=== PATIENT | female | born 1990 | race Caucasian/White ===

== ENCOUNTER → 2024-01-10 08:16 | Outpatient (REF) | payer OTHER, SELFPAY | LOC: PNTC 08:16 | PROVIDERS: ATTENDING PHYSICIAN Obstetrics & Gynecology | DX: O41.00X0 Oligohydramnios, unspecified trimester, not applicable or unspecified (principal); O36.5990 Maternal care for other known or suspected poor fetal growth, unspecified trimester, not applicable or unspecified | CPT/HCPCS: 59025; 76815; 76820 ==

== ENCOUNTER → 2024-01-14 10:23 | Outpatient (REF) | payer OTHER, SELFPAY | LOC: PNTC 10:23 | PROVIDERS: ATTENDING PHYSICIAN Obstetrics & Gynecology | DX: O36.5990 Maternal care for other known or suspected poor fetal growth, unspecified trimester, not applicable or unspecified (principal); O41.00X0 Oligohydramnios, unspecified trimester, not applicable or unspecified | CPT/HCPCS: 59025; 76815; 76820 ==

== ENCOUNTER → 2024-01-17 09:48 | Outpatient (REF) | payer OTHER, SELFPAY | LOC: PNTC 09:48 | PROVIDERS: ATTENDING PHYSICIAN Obstetrics & Gynecology | DX: O36.5990 Maternal care for other known or suspected poor fetal growth, unspecified trimester, not applicable or unspecified (principal); E86.9 Volume depletion, unspecified | CPT/HCPCS: 59025; 76815; 76820 ==

== ENCOUNTER → 2024-01-21 10:58 | Outpatient (REF) | payer OTHER, SELFPAY | LOC: PNTC 10:58 | PROVIDERS: ATTENDING PHYSICIAN Obstetrics & Gynecology | DX: O41.00X0 Oligohydramnios, unspecified trimester, not applicable or unspecified (principal); O36.5990 Maternal care for other known or suspected poor fetal growth, unspecified trimester, not applicable or unspecified | CPT/HCPCS: 59025; 76815; 76820 ==

== ENCOUNTER → 2024-01-24 09:20 | Outpatient (REF) | payer OTHER, SELFPAY | LOC: PNTC 09:20 | PROVIDERS: ATTENDING PHYSICIAN Obstetrics & Gynecology | DX: O41.00X0 Oligohydramnios, unspecified trimester, not applicable or unspecified (principal) | CPT/HCPCS: 59025; 76816 ==

== ENCOUNTER → 2024-01-28 09:24 | Outpatient (REF) | payer OTHER, SELFPAY | LOC: PNTC 09:24 | PROVIDERS: ATTENDING PHYSICIAN Obstetrics & Gynecology | DX: O36.5990 Maternal care for other known or suspected poor fetal growth, unspecified trimester, not applicable or unspecified (principal); O41.00X0 Oligohydramnios, unspecified trimester, not applicable or unspecified | CPT/HCPCS: 59025; 76815; 76820 ==

== ENCOUNTER → 2024-01-31 08:52 | Outpatient (REF) | payer OTHER, SELFPAY | LOC: PNTC 08:52 | PROVIDERS: ATTENDING PHYSICIAN Obstetrics & Gynecology | DX: O41.00X0 Oligohydramnios, unspecified trimester, not applicable or unspecified (principal) | CPT/HCPCS: 59025; 76815; 76820 ==

== ENCOUNTER → 2024-02-04 08:54 | Outpatient (REF) | payer OTHER, SELFPAY | LOC: PNTC 08:54 | PROVIDERS: ATTENDING PHYSICIAN Obstetrics & Gynecology | DX: O36.5990 Maternal care for other known or suspected poor fetal growth, unspecified trimester, not applicable or unspecified (principal); O41.00X0 Oligohydramnios, unspecified trimester, not applicable or unspecified | CPT/HCPCS: 76815 ==

== ENCOUNTER → 2024-02-07 09:50 | Outpatient (REF) | payer OTHER, SELFPAY | LOC: PNTC 09:50 | PROVIDERS: ATTENDING PHYSICIAN Obstetrics & Gynecology | DX: O41.00X0 Oligohydramnios, unspecified trimester, not applicable or unspecified (principal); O36.5990 Maternal care for other known or suspected poor fetal growth, unspecified trimester, not applicable or unspecified | CPT/HCPCS: 59025; 76815; 76820 ==

== ENCOUNTER → 2024-02-11 08:55 | Outpatient (REF) | payer OTHER, SELFPAY | LOC: PNTC 08:55 | PROVIDERS: ATTENDING PHYSICIAN Obstetrics & Gynecology | DX: O36.5990 Maternal care for other known or suspected poor fetal growth, unspecified trimester, not applicable or unspecified (principal); O41.00X0 Oligohydramnios, unspecified trimester, not applicable or unspecified | CPT/HCPCS: 59025; 76815; 76820 ==

== ENCOUNTER → 2024-02-14 10:52 | Outpatient (REF) | payer OTHER, SELFPAY | LOC: PNTC 10:52 | PROVIDERS: ATTENDING PHYSICIAN Obstetrics & Gynecology | DX: O41.00X0 Oligohydramnios, unspecified trimester, not applicable or unspecified (principal) | CPT/HCPCS: 59025; 76816; 76820 ==

== ENCOUNTER → 2024-02-18 08:55 | Outpatient (REF) | payer OTHER, SELFPAY | LOC: PNTC 08:55 | PROVIDERS: ATTENDING PHYSICIAN Obstetrics & Gynecology | DX: O41.00X0 Oligohydramnios, unspecified trimester, not applicable or unspecified (principal); O36.5990 Maternal care for other known or suspected poor fetal growth, unspecified trimester, not applicable or unspecified | CPT/HCPCS: 59025; 76816; 76820 ==

== ENCOUNTER 2024-02-19 05:54 | Inpatient (IN) | payer OTHER, SELFPAY ==
[2024-02-19 06:01] VITALS: BP 116/64; BMI 25.8
[2024-02-19 06:39] LABS: Hemoglobin 11.5 g/dL (12.0-16.0); Mean Corp Hgb Conc. 34.8 g/dL (33.0-37.0); Mean Corpuscular Hgb 30.5 pg (27.0-31.0); Mean Corpuscular Volume 87.5 fL (81.0-99.0); Mean Platelet Volume 11.2 fL (7.4-10.4); Platelet Count 226 10^3/uL (130-400); Red Blood Cell Count 3.77 10^6/uL (4.20-5.40); Red Cell Dist. Width 13.5 % (11.5-14.5); White Blood Cell Count 12.2 10^3/uL (4.8-10.8)
[2024-02-19] MEDS: TYLENOL 1000 MG PO (06:58)
[2024-02-19] MEDS: BICITRA 30 ML PO (06:59)
[2024-02-19] MEDS: ZITHROMAX INFUSION 250 IV (07:15)
[2024-02-19] MEDS: TORADOL 15 MG IV ×2 (14:12→19:52)
[2024-02-20] MEDS: TORADOL 15 MG IV ×2 (01:44→08:29)
--- NOTE | 2024-02-20 04:45 | DOWNTIME ---
There was a [employer] Downtime on 02/20/2024 from 0100 to 02/20/2024 at 0439. Downtime documentation of patient's care, including medication administrations, has been reconciled in the electronic record per guidelines. Refer to the
patient's paper chart under the miscellaneous tab to see printed paper medication records and downtime forms.
[2024-02-20 05:28] LABS: Hematocrit 24.8 % (37.0-47.0); Hemoglobin 8.6 g/dL (12.0-16.0); Mean Corp Hgb Conc. 34.7 g/dL (33.0-37.0); Mean Corpuscular Hgb 30.2 pg (27.0-31.0); Mean Platelet Volume 11.1 fL (7.4-10.4); Platelet Count 155 10^3/uL (130-400); Red Blood Cell Count 2.85 10^6/uL (4.20-5.40); Red Cell Dist. Width 13.5 % (11.5-14.5); White Blood Cell Count 13.1 10^3/uL (4.8-10.8)
--- NOTE | 2024-02-20 07:36 | W.PN.ANS.POP ---
Anesthesia Post Operative
- Anesthesia Post Op Note
Vital Signs Stable-See Nursing Note: Yes
Airway Patent: Yes
Adequate Pain Control: Yes
Change in Mental Status: No
Current Postoperative Nausea & Vomiting: No
Anesthesia Complications: No
General Anesthetic Recall: No
Unplanned Admission: No
Post Op Hydration Adequate: Yes
[2024-02-20] MEDS: SENOKOT-S 1 TABLET PO (08:29)
[2024-02-20] MEDS: PRENATAL PLUS 1 TABLET PO (08:29)
[2024-02-20] MEDS: MYLICON 80 MG PO (08:29)
[2024-02-20] MEDS: MOTRIN 600 MG PO ×2 (15:50→21:34)
[2024-02-20] MEDS: TYLENOL 650 MG PO ×2 (15:50→21:34)
[2024-02-21] MEDS: MOTRIN 600 MG PO (04:02)
[2024-02-21] MEDS: TYLENOL 650 MG PO (04:03)
[2024-02-21] MEDS: FEOSOL 325 MG PO (08:51)
[2024-02-21] MEDS: PRENATAL PLUS 1 TABLET PO (08:51)
--- NOTE | 2024-02-21 10:46 | W.DS.TRANS ---
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
-
Discharge Instructions:
Discharge Diagnosis/Procedures delivered;repeat csection
Diet Regular
Activity No strenuous activity
Driving Restrictions No driving for 2 weeks
Bathing Restrictions OK to Shower
Instructions:
Stand-Alone Forms: LDRP Delivery
Changes to Home Medications: No
Discharge Medications:
DC Medications w/original date entered in [employer]
vit no.95-ferrous fumarate 28 mg-folic acid 800 mcg tablet () 1 ea PO DAILY Supplement 06/24/20
acetaminophen 325 mg tablet 650 mg (2 x 325 mg) PO Q4HPRN PRN mild pain #0 tabs 02/20/24
ibuprofen 600 mg tablet 600 mg PO Q6HPRN PRN cramps #0 tabs 02/20/24
Home Medication Changes
Pending Results: No
Total time spent discharging patient (in min): 20
[2024-02-22 17:19] LABS: Syphilis/T. pallidum Ab Reflex Negative (Negative)
== END 2024-02-21 11:12 | disposition home or self-care (01) | DRG 788 ==
LOC: LDRP 05:54
PROVIDERS: ADMITTING PHYSICIAN Obstetrics & Gynecology; FAMILY PHYSICIAN Internal Medicine
PROC: 10D00Z1 Extraction of Products of Conception, Low, Open Approach (ICD-10-PCS; 2024-02-19)
DX: O34.211 Maternal care for low transverse scar from previous cesarean delivery (principal); N85.8 Other specified noninflammatory disorders of uterus; O69.81X0 Labor and delivery complicated by cord around neck, without compression, not applicable or unspecified; Z3A.38 38 weeks gestation of pregnancy; Z37.0 Single live birth
CPT/HCPCS: 85027; 86780; 86850; 86900; 86901